=== PATIENT | male | born 1970 | race Two or more races ===

== ENCOUNTER 2019-03-23 20:12 | Emergency (ER) | payer OTHER ==
[~2019-03-23] VITALS: Ht 162.6 cm; Wt 72.6 kg
[2019-03-23] MEDS ORDERED: LISINOPRIL20 MG ORAL (20:20)
[2019-03-23] MEDS ORDERED: JANUVIA25 MG ORAL (20:20)
[2019-03-23] MEDS ORDERED: METFORMIN HCL500 M1 ORAL (20:20)
--- NOTE | 2019-03-23 20:28 | NUR ---
ED Nurse Note: Patient walked into ED c/o 10/10 left arm pain after having chairs fall into his left arm. Pt is AO x 4times, VSS, on room air no distress. HAYLEYD seen Pt at bedside.
[2019-03-23] MEDS ORDERED: Ketorolac 60mg Inj IM ONE (20:30)
[2019-03-23] MEDS ORDERED: Acetaminophen 500mg (ES) tab ORAL ONE (20:30)
--- NOTE | 2019-03-23 20:30 | NUR ---
ED Nurse Note: X ray at bedside.
--- NOTE | 2019-03-23 20:49 | Emergency Room Report ---
History of Present Illness General Chief Complaint: Pain Source: Patient Present Illness HPI 48-year-old male history of diabetes presents with left forearm pain, after chairs fell on his arm, he denies any numbness or tingling, he endorses left forearm pain sharp in nature, moderate severity, aggravated with movement alleviated with rest, patient presents for evaluation. Allergies: Coded Allergies: No Known Allergies (Unverified , 03/23/19) Patient History Past Medical History: see triage record Reviewed Nursing Documentation: PMH: Agreed; PSxH: Agreed Nursing Documentation-PMH Past Medical History: No History, Except For Hx Hypertension: Yes - HTN Hx Diabetes: Yes - Type 2 Review of Systems All Other Systems: negative except mentioned in HPI Physical Exam Vital Signs Date Time Temp Pulse Resp B/P (MAP) Pulse Ox O2 Delivery O2 Flow Rate FiO2 03/23/19 20:15 98.2 92 18 129/84 (99) 97 Room Air Sp02 EP Interpretation: reviewed, normal General Appearance: well appearing, no apparent distress, alert Head: normocephalic, atraumatic Eyes: bilateral eye PERRL, bilateral eye EOMI ENT: uvula midline, moist mucus membranes Neck: supple, thyroid normal, supple/symm/no masses Respiratory: lungs clear, no respiratory distress, no retraction, no accessory muscle use Cardiovascular #1: normal peripheral pulses, regular rate, rhythm, no edema, no gallop, no murmur Gastrointestinal: non tender, soft, no guarding, no rebound Musculoskeletal: normal inspection, other - Left upper extremity: 2+ radial pulses, radial median ulnar nerve intact, tenderness to palpation left forearm, proximal aspect, no deformity, no swelling, no ecchymosis, Neurologic: alert, oriented x3 Psychiatric: mood/affect normal Skin: no rash, warm/dry Medical Decision Making Diagnostic Impression: Primary Impression: Pain Additional Impression: Forearm contusion ER Course Patient with most likely a muscular contusion, no evidence of fracture, x-rays negative, fracture was contusion, forearm fracture Disposition home with return precautions, patient felt better with medications, Worker's Comp. was filled Other X-Ray Diagnostic Results Other X-Ray Diagnostic Results : X-Ray ordered: Right forearm complete 3 view # of Views/Limited Vs Complete: 3 View Indication: Pain EP Interpretation: Yes Interpretation: no dislocation, no soft tissue swelling Impression: No acute disease Electronically Signed by: Patric George MD Last Vital Signs Date Time Temp Pulse Resp B/P (MAP) Pulse Ox O2 Delivery O2 Flow Rate FiO2 03/23/19 20:15 98.2 92 18 129/84 (99) 97 Room Air Disposition: HOME, SELF-CARE Condition: Improved Scripts Methocarbamol* (ROBAXIN-750*) 750 Mg Tablet 750 MG PO QID, #28 TAB 0 Refills Prov: Patric George MD 03/23/19 Naproxen* (NAPROSYN*) 250 Mg Tablet 250 MG ORAL BID PRN for For Pain, #20 TAB 0 Refills Prov: Patric George MD 03/23/19 Referrals: NOT CHOSEN IPA/,REFERRING (PCP) [facility] Patient Instructions: Contusion Additional Instructions: The patient was provided with discharge instructions, notified to follow-up with a primary care doctor and or specialist in the next 24-48 hours, and to return to the ED if they have worsening of their symptoms. Please note that this report is being documented using [employer] technology. This can lead to erroneous entry secondary to incorrect interpretation by the dictating instrument. Patric George MD Mar 23, 2019 20:49
[2019-03-23] MEDS ORDERED: NAPROXEN250 MG ORAL (20:59)
[2019-03-23] MEDS ORDERED: ROBAXIN-750750 MG PO (20:59)
--- NOTE | 2019-03-23 21:09 | NUR ---
ER DISCHARGE NOTE: Patient is cleared to be discharged per ERMD, pt is aox4, on room air, with stable vital signs. pt was given dc and prescription instructions, pt was able to verbalize understanding, pt id band removed without complications. pt is able to ambulate with steady gait. pt took all belongings. Sling applied on L arm.
[2019-03-23 21:10] VITALS: BP 135/79
[2019-03-23 21:12] VITALS: BP 135/79
--- NOTE | 2019-03-24 10:36 | Diagnostic Imaging Report ---
Indications:Left elbow pain Technique: Three or 4 views of the left elbow Comparison: None Findings: Small sclerotic density in the lateral epicondyle of this likely represents a bone island. No joint effusion. No acute fractures. No dislocations. The joint spaces are preserved. Impression: No acute process. This agrees with the preliminary interpretation provided by the emergency room physician
== END 2019-03-23 21:12 | disposition home or self-care (01) ==
LOC: EMR 20:34
DX: S50.12XA Contusion of left forearm, initial encounter (principal); W22.03XA Walked into furniture, initial encounter; Y92.9 Unspecified place or not applicable; E11.9 Type 2 diabetes mellitus without complications; I10 Essential (primary) hypertension
CPT/HCPCS: 96372; 99283